=== PATIENT | male | born 1970 | race Caucasian/White ===

== ENCOUNTER 2023-11-24 14:17 | Outpatient (AMB) | payer SELFPAY ==
--- NOTE | 2023-11-24 14:54 | MHC.OFFWIV ---
Intake Vital Signs 11/24/23 14:56 Height 5 ft 9 in Weight 174 lb 4 oz BMI 25.7 BP 136/78 Blood Pressure Location Lt brachial Position Sitting Pulse 78 Pulse Source Pulse Oximeter Temp 97.9 F Temp Source Oral Pulse Oximetry (%) 99 Oxygen Delivery Method Room Air Intake Visit Reasons: [employer], right ear blockage, headache Intake Note: pt is here for c/o headache, sinus infection Patient Tobacco Use Status: Never used Tobacco Allergies KIRIT Inhibitors Allergy (Mild, Verified 11/24/23 14:58) Rash Do you need a note to return to daycare/school/sports/work: Yes HPI HPI Comments History of Present Illness Details Patient is a 53-year-old male in today for sick visit. He has a past medical history significant for hypertension. He states that over the past several days he has developed a feeling of ear fullness in his right ear with discomfort. He states that sometimes it does make him feel dizzy. Patient has history of frequent ear infections, which have a similar presentation. Denies fever, nausea, vomiting, diarrhea, chest pain, and shortness of breath. [facility] Social History Patient Tobacco Use Status: Never used Tobacco Review of Systems Const Details: Constitutional : No Weight loss, No Fever, No Chills, No Fatigue, No Malaise ENT/Mouth : No sore throat, No Rhinorrhea. Right ear pain and fullness. Eyes: No Eye Pain, No Swelling, No Redness Cardiovascular : No Chest Pain, No SOB, No Dyspnea on Exertion, No Orthopnea, No Edema, No Palpitations Respiratory : No Cough, No Sputum, No Wheezing Gastrointestinal : No Nausea, No Vomiting, No Diarrhea, No Constipation, No abdominal Pain, No Hematochezia, No Melena Musculoskeletal : No joint pain, No Myalgias, No Joint Swelling Skin : No Skin Lesions, No rash Neuro : No Weakness, No Numbness, Occasional Dizziness, No Headache Psych : No Anxiety/Panic, No Depression Heme/Lymph: No Bruising, No Bleeding,No Lymphadenopathy Endocrine : No Polyuria, No Polydipsia All other systems reviewed and are negative Physical Exam Vital Signs: Last Vital Signs Temp 97.9 F 11/24/23 14:56 Pulse 78 11/24/23 14:56 BP 136/78 11/24/23 14:56 Pulse Ox 99 11/24/23 14:56 Oxygen Delivery Method Room Air 11/24/23 14:56 BMI result Body Mass Index 25.7 Vital signs reviewed and are stable Const Other: Appearance: Alert.? Oriented X3.? No acute distress.? Head: Normocephalic, atraumatic, Eyes: Pupils equal, round and reactive to light.? ENT: Pharynx normal.?Left TM intact effusion with no erythema. Right ear erythema with effusion, Neck: Normal inspection.? Neck supple.?Full ROM CVS: Normal heart rate and rhythm.? Pulses normal.?Patient has systolic murmur. Respiratory: No respiratory distress.? Breath sounds normal.? Abdomen: Soft and nontender.? Skin: Skin warm and dry.? Normal skin color.? Normal skin turgor.? Extremities: No lower extremity edema.? No calf ttp. 5/5 strength to bilateral upper and lower extremities Neuro: Oriented X 3.? No motor deficit.? No sensory deficit. CN 2-12 intact Assessment & Plan Assessment & Plan (1) Otitis media of right ear: Comment: Patient will be given Augmentin and prednisone to be taken as prescribed and directed. He has been educated on the side effects of these medications. He states he understands the plan. Code(s): H66.91 - Otitis media, unspecified, right ear Qualifiers: Otitis media type: unspecified Qualified Code(s): H66.91 - Otitis media, unspecified, right ear Plan: Should follow-up with PCP Plan Take your medications as prescribed. If you were prescribed antibiotics today, it is important that you take your medication to their entirety, do not skip any doses, do not finish them early. Follow-up with your primary care provider this week. Return to the emergency department with new or worsening symptoms. Such as fevers, chills, chest pain, shortness of breath, nausea, vomiting, dizziness, headache, vision changes, lethargy In case of emergency call 911 Medications: New amoxicillin-pot clavulanate 875-125 mg 1 tab PO Q12H 20 tabs 0RF prednisone 20 mg PO DAILY 5 tabs 0RF Coding Level of Care Code New Pt Level 4 (38106) Diagnoses Right otitis media, unspecified otitis media type H66.91 Otitis media type: unspecified Time Spent (min) 20
[2023-11-24 14:56] VITALS: BP 136/78; PULSE 78; TEMP 36.6; O2SAT 99; BMI 25.7
== END 2023-11-24 15:45 | disposition home or self-care (01) ==
PROVIDERS: Visit Provider Nurse Practitioner Primary Care
DX: H66.91 Otitis media, unspecified, right ear (principal)
CPT/HCPCS: 99204